=== PATIENT | female | born 1930 | race Caucasian/White ===

== ENCOUNTER 2017-01-11 12:47 | Emergency (ER) | payer MEDICARE, BC ==
--- NOTE | 2017-01-11 13:23 | EDM.PDOC ---
ED HPI GENERAL MEDICAL PROBLEM - General Chief Complaint: Cardiovascular Problem Stated Complaint: HIGH BLOOD PRESSURE Time Seen by Provider: 01/11/17 13:00 Source of Information: Reports: Patient, Family History Limitations: Reports: No Limitations - History of Present Illness INITIAL COMMENTS - FREE TEXT/NARRATIVE: Alejandra is 1 day post op excision of ganglion cyst of R foot, managed with orthotic shoe and analgesics including Vicodin 5/325 q 4 hrs. She felt fine last night and this am, but over the past 2 hrs have felt different, aching, dizziness, and some nausea. There is no chest pain, SOB, palpitations, abdominal pain, loss of coordination, or new issues affecting R foot. She checked her BP 178/85, and again 196/90 at home, called her surgeon who suggested visit to ED. Upon arrival, BP 183/60. 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 [employer]KER: hydrocodone - Related Data Allergies Allergy/AdvReac Type Severity Reaction Status Date / Time codeine Allergy Nausea and Verified 01/11/17 12:56 Vomiting Latex, Natural Rubber Allergy Rash Verified 01/11/17 12:56 Home Meds: Home Meds Acetaminophen/HYDROcodone [[place] 325-5 MG] 1 tab PO DAILY 01/11/17 [History] Aspirin 1 tab PO DAILY 01/11/17 [History] Calcium Carb & Citrate/Vit D3 [Calcium + D3 ER Tablet] 1 tab PO DAILY 01/11/17 [ History] Carboxymethylcellulose Sodium [Refresh Plus 0.5%] 1 drop EYEBOTH DAILY 01/11/17 [History] Cholecalciferol (Vitamin D3) [Vitamin D3] 1 cap PO DAILY 01/11/17 [History] Fish Oil/DHA/EPA [Fish Oil 1,200 MG] 1 cap PO DAILY 01/11/17 [History] Flaxseed/Omega3,6,9/Fatty Acid [Flax Seed Oil 1,300 mg Softgel] 1 cap PO DAILY 01/11/17 [History] Gluc 2KCl/Chondr/Chace Hy/Hy Ac [Glucosamine & Chondroitin Cap] 1 each PO DAILY 01/11/17 [History] Levothyroxine 1 mcg PO DAILY 01/11/17 [History] Multivitamin [Multivitamins] 1 tab PO DAILY 01/11/17 [History] Past Medical History Endocrine/Metabolic History: Reports: Hypothyroidism ED ROS GENERAL - Review of Systems Review Of Systems: See Below Constitutional: Reports: No Symptoms HEENT: Reports: No Symptoms Respiratory: Reports: No Symptoms Cardiovascular: Reports: Lightheadedness Endocrine: Reports: No Symptoms GI/Abdominal: Reports: Nausea : Reports: No Symptoms Musculoskeletal: Reports: Foot Pain (right) Skin: Reports: No Symptoms Neurological: Reports: Dizziness Psychiatric: Reports: No Symptoms Hematologic/Lymphatic: Reports: No Symptoms Immunologic: Reports: No Symptoms ED EXAM, GENERAL - Physical Exam Exam: See Below Exam Limited By: No Limitations General Appearance: Alert, WD/WN, No Apparent Distress, Anxious Eye Exam: Bilateral Eye: Normal Inspection, PERRL Ears: Normal External Exam Nose: Normal Inspection Throat/Mouth: Normal Inspection, Normal Oropharynx Head: Normocephalic Neck: Normal Inspection, Supple, Non-Tender, Full Range of Motion Respiratory/Chest: Lungs Clear, Normal Breath Sounds, No Accessory Muscle Use, Chest Non-Tender Cardiovascular: Normal Peripheral Pulses, Regular Rate, Rhythm, No Edema, No JVD , Systolic Murmur (grade 2/6 CAIO) GI/Abdominal: Normal Bowel Sounds, Soft, Non-Tender, No Organomegaly, No Distention, No Mass (Female) Exam: Deferred Rectal (Female) Exam: Deferred Back Exam: Normal Inspection Extremities: Normal Inspection, Normal Range of Motion, Non-Tender, No Pedal Edema, Normal Capillary Refill Neurological: Alert, Oriented, CN II-XII Intact, Normal Reflexes, No Motor/ Sensory Deficits Psychiatric: Normal Affect, Anxious Skin Exam: Warm, Dry Lymphatic: No Adenopathy Course - Vital Signs Text/Narrative:: BP and pulse were periodically monitored over the next hour, with BPs 165/60, 60 ; 158/64, 63; and 147/69, 57; she was asx during this observation. No meds were dispensed. Last Recorded V/S: Last Vital Signs Temp 36.6 C 01/11/17 13:08 Pulse 57 L 01/11/17 14:02 Resp 16 01/11/17 14:02 BP 147/69 H 01/11/17 14:02 Pulse Ox 99 01/11/17 14:02 Departure - Departure Time of Disposition: 14:15 Disposition: Home, Self-Care 01 Condition: good Clinical Impression: Labile hypertension Forms: ED Department Discharge - Problem List & Annotations (1) Labile hypertension SNOMED Code(s): 19145681462500902 Code(s): I10 - ESSENTIAL (PRIMARY) HYPERTENSION Status: Acute Current Visit: Yes Annotation/Comment:: Labile hypertension NOS. I suggested holding any further doses of the Vicodin, may take Tylenol for pain, activity as tolerated. No meds dispensed. - Problem List Review Problem List Initiated/Reviewed/Updated: Yes - Assessment/Plan Plan: Follow up with PCP if needed.
[2017-01-11 14:04] VITALS: BP 147/69
== END 2017-01-11 14:20 | disposition home or self-care (01) ==
LOC: FB.ED 12:47 → SUPCPDRO 12:47 → FB.ED 14:20
DX: R09.89 Other specified symptoms and signs involving the circulatory and respiratory systems (principal); E03.9 Hypothyroidism, unspecified; Z88.5 Allergy status to narcotic agent; Z91.040 Latex allergy status; Z91.09 Other allergy status, other than to drugs and biological substances; Z79.82 Long term (current) use of aspirin; Z79.899 Other long term (current) drug therapy
CPT/HCPCS: 99282

== ENCOUNTER 2017-05-04 12:32 | Emergency (ER) | payer MEDICARE, BC ==
[2017-05-04 13:57] VITALS: BP 175/58
--- NOTE | 2017-05-04 14:01 | EDM.PDOC ---
ED HPI GENERAL MEDICAL PROBLEM - General Chief Complaint: Neuro Symptoms/Deficits Stated Complaint: DIZZINESS Time Seen by Provider: 05/04/17 12:34 Source of Information: Reports: Patient, Family History Limitations: Reports: No Limitations - History of Present Illness INITIAL COMMENTS - FREE TEXT/NARRATIVE: 86 y.o.w.mel came to the ed after she was on a ladder and felt suddenly dizzy and pain at her r cheek, no numbness. On arrival, her SBP was 188. Her dizziness subsided as her SBP improved to 154, while here in the ed. Pt's SBP baseline is 140 or lower. No other acute medical issues at this time. No F/C. Onset: Sudden Onset Date: 05/05/17 Onset Time: 07:00 Duration: Constant Location: Reports: Face Quality: Reports: Ache, Dull, Pressure Severity: Moderate Improves with: Reports: None Worsens with: Reports: Other (pressure) Associated Symptoms: Reports: Weakness - Related Data Allergies Allergy/AdvReac Type Severity Reaction Status Date / Time codeine Allergy Nausea and Verified 05/04/17 13:04 Vomiting Latex, Natural Rubber Allergy Rash Verified 05/04/17 13:04 Home Meds: Home Meds Acetaminophen/HYDROcodone [[place] 325-5 MG] 1 tab PO DAILY 01/11/17 [History] Aspirin 1 tab PO DAILY 01/11/17 [History] Calcium Carb & Citrate/Vit D3 [Calcium + D3 ER Tablet] 1 tab PO DAILY 01/11/17 [ History] Carboxymethylcellulose Sodium [Refresh Plus 0.5%] 1 drop EYEBOTH DAILY 01/11/17 [History] Cholecalciferol (Vitamin D3) [Vitamin D3] 1 cap PO DAILY 01/11/17 [History] Fish Oil/DHA/EPA [Fish Oil 1,200 MG] 1 cap PO DAILY 01/11/17 [History] Flaxseed/Omega3,6,9/Fatty Acid [Flax Seed Oil 1,300 mg Softgel] 1 cap PO DAILY 01/11/17 [History] Gluc 2KCl/Chondr/Chace Hy/Hy Ac [Glucosamine & Chondroitin Cap] 1 each PO DAILY 01/11/17 [History] Levothyroxine 1 mcg PO DAILY 01/11/17 [History] Multivitamin [Multivitamins] 1 tab PO DAILY 01/11/17 [History] Amoxicillin/Potassium Clav [Augmentin 875125 Tablet] 1 each PO BID #20 tablet 05/04/17 [Rx] Past Medical History Cardiovascular History: Reports: Heart Murmur Other Cardiovascular History: scheduled for an echo Endocrine/Metabolic History: Reports: Hypothyroidism - Past Surgical History Other Musculoskeletal Surgeries/Procedures:: right foot surgery in [place] 01/10/17 Social & Family History - Tobacco Use Smoking Status *Q: Never Smoker Second Hand Smoke Exposure: No - Caffeine Use Caffeine Use: Reports: Coffee - Recreational Drug Use Recreational Drug Use: No ED ROS GENERAL - Review of Systems Review Of Systems: See Below Constitutional: Reports: No Symptoms, 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) HEENT: Reports: Sinus Problem Respiratory: Reports: No Symptoms Cardiovascular: Reports: No Symptoms Endocrine: Reports: No Symptoms GI/Abdominal: Reports: No Symptoms : Reports: No Symptoms Musculoskeletal: Reports: No Symptoms Skin: Reports: No Symptoms Neurological: Reports: No Symptoms Psychiatric: Reports: No Symptoms Hematologic/Lymphatic: Reports: No Symptoms Immunologic: Reports: No Symptoms ED EXAM, NEURO - Physical Exam Exam: See Below Exam Limited By: No Limitations General Appearance: Alert, WD/WN, Mild Distress Eye Exam: Bilateral Eye: Normal Inspection Ears: Normal External Exam Nose: Normal Inspection Throat/Mouth: Normal Inspection Head Exam: Sinus Tenderness Neck: Normal Inspection, Supple, Non-Tender, Full Range of Motion Respiratory/Chest: No Respiratory Distress, Lungs Clear, Normal Breath Sounds, No Accessory Muscle Use, Chest Non-Tender Cardiovascular: Normal Peripheral Pulses, Regular Rate, Rhythm, No Edema GI/Abdominal: Normal Bowel Sounds, Soft, Non-Tender, No Organomegaly, No Distention, No Abnormal Bruit, No Mass (Female) Exam: Deferred Rectal (Female) Exam: Deferred Neurological: Alert, Normal Mood/Affect, CN II-XII Intact, Normal Gait, Oriented x 3 Back Exam: Normal Inspection, Full Range of Motion Extremities: Normal Inspection, Normal Range of Motion, No Pedal Edema Psychiatric: Normal Affect, Normal Mood Skin Exam: Warm, Dry, Intact, Normal Color, No Rash Course - Vital Signs Text/Narrative:: 86 y.o.w.f came to the ed after she was on a ladder and felt suddenly dizzy and pain at her r cheek, no numbness. On arrival, her SBP was 188. Her dizziness subsided as her SBP improved to 154, while here in the ed. Pt's SBP baseline is 140 or lower. No other acute medical issues at this time. No F/C. PE: Right sided max sinus tendernes, HTN Impression: R sided max sinusitis Impression:R sided max sinusitis, HTN (situational?) Tx: augmentin Reexam: BP improved to 155/87, Dizziness subsided Plan: D/C with instructions, F/U with PMD for BP Meds adjustment Last Recorded V/S: Last Vital Signs Temp 36.9 C 05/04/17 13:57 Pulse 68 05/04/17 13:57 Resp 18 05/04/17 13:57 BP 175/58 H 05/04/17 13:57 Pulse Ox 100 05/04/17 13:57 - Orders/Labs/Meds Labs: Laboratory Tests 05/04/17 05/04/17 Range/Units 13:20 13:20 WBC 8.7 (4.5-12.0) X10-3/uL RBC 4.60 (3.23-5.20) x10(6)uL Hgb 14.2 (11.5-15.5) g/dL Hct 40.9 (30.0-51.3) % MCV 89.0 (80-96) fL MCH 30.8 (27.7-33.6) pg MCHC 34.6 (32.2-35.4) g/dL RDW 13.3 (11.5-15.5) % Plt Count 336 (125-369) X10(3)uL MPV 8.4 (7.4-10.4) fL Neut % (Auto) 62.5 (46-82) % Lymph % (Auto) 23.6 (13-37) % [place] % (Auto) 8.1 (4-12) % Eos % (Auto) 5 (1.0-5.0) % Baso % (Auto) 1 (0-2) % Neut # (Auto) 5.3 (1.6-8.3) # Lymph # (Auto) 2.1 (0.6-5.0) # [place] # (Auto) 0.7 (0.0-1.3) # Eos # (Auto) 0.5 (0.0-0.8) # Baso # (Auto) 0.1 (0.0-0.2) # Sodium 134 L (135-145) mmol/L Potassium 4.5 (3.5-5.3) mmol/L Chloride 99 L (100-110) mmol/L Carbon Dioxide 27 (23-29) mmol/L BUN 20 (8-23) mg/dL Creatinine 0.7 (0.6-1.3) mg/dL Est Cr Clr Drug Dosing TNP Estimated GFR (MDRD) > 60 (>60) BUN/Creatinine Ratio 28.6 H (9-20) Glucose 106 (80-116) mg/dL Calcium 9.5 (8.6-10.2) mg/dL Departure - Departure Time of Disposition: 13:57 Disposition: Home, Self-Care 01 Condition: Good Clinical Impression: Sinusitis Qualifiers: Sinusitis location: maxillary Chronicity: acute Recurrence: non-recurrent Qualified Code(s): J01.00 - Acute maxillary sinusitis, unspecified Hypertension Qualifiers: Hypertension type: essential hypertension Qualified Code(s): I10 - Essential ( primary) hypertension - Discharge Information Prescriptions: Amoxicillin/Potassium Clav [Augmentin 875-125 Tablet] 1 each PO BID #20 tablet Referrals: Maeve Barrios [employer] [Primary Care Provider] - Forms: ED Department Discharge Additional Instructions: Please take ABx as recommended. Please check your blood pressure daily and keep SBP below 14O, Please f/u, come back if your symptoms get worse acutely.
--- NOTE | 2017-05-04 14:39 | CT ---
INDICATION: Headache, facial pain 2 hours, double vision/fuzzy vision, dizziness. CT HEAD WITHOUT CONTRAST: Serial contiguous 2.5 and 5-mm sections were obtained through the brain without contrast and revealed minimal thickening of the lining of the maxillary antra anteriorly with thickened linings in multiple ethmoidal air cells, mostly on the right. Thickening of the lining of the frontal air cells at their bases is also noted. Thickening of the lining of the left sphenoidal air cell is noted, with what appears to be an air-fluid level in the right sphenoidal air cell and an area of thickened lining also seen in that air cell. Thickened lining and retention cyst noted in the left sphenoid air cell. Findings may represent sinusitis and should be correlated clinically. The mastoid air cells appear to be well aerated. No definite cranial abnormality was seen. No shift of midline structures or ventricular abnormalities identified. No bleeding site or hematoma was seen. There is, however, noted some very minimal decreased density in the white matter , left frontoparietal area mainly, suggesting the possibility of minimal microvascular disease. Calcifications are noted in the internal carotid arteries, much more prominently on the left than right. A tiny low-density area is noted in the posterior aspect of the external capsule on the right and could represent a tiny lacunar infarct. IMPRESSION: 1. No definite acute intracranial abnormalities identified. 2. Minimal microvascular disease suggested. 3. Arterial calcifications noted, most prominently at the left internal carotid artery and to a relatively milder extent at the right internal carotid artery. 4. Probable sinusitis most prominently at the ethmoidal air cells. 5. Possible very tiny lacunar infarct posterior external capsule on the right. Total Exam DLP = 949.36 mGy-cm. Report was called to Dr. Prado at 1348 hours, 05/04/2017. [facility]
== END 2017-05-04 14:10 | disposition home or self-care (01) ==
LOC: FB.ED 12:32
DX: I10 Essential (primary) hypertension (principal); J01.00 Acute maxillary sinusitis, unspecified; E03.9 Hypothyroidism, unspecified; Z88.5 Allergy status to narcotic agent; Z91.040 Latex allergy status; Z79.82 Long term (current) use of aspirin; Z79.899 Other long term (current) drug therapy
CPT/HCPCS: 36415; 70450; 80048; 85025; 99283; 99284

== ENCOUNTER 2018-02-28 14:52 | Emergency (ER) | payer MEDICARE, BC ==
--- NOTE | 2018-02-28 15:55 | EDM.PDOC ---
ED HPI GENERAL MEDICAL PROBLEM - General Chief Complaint: Cardiovascular Problem Stated Complaint: VISION BP HIGH Time Seen by Provider: 02/28/18 15:30 Source of Information: Reports: Patient, Family, Old Records History Limitations: Reports: No Limitations - History of Present Illness INITIAL COMMENTS - FREE TEXT/NARRATIVE: Alejandra reports sxs of dizziness ie "my eyes feel heavy" as though she has trouble seeing clearly. She can still read and identify details. Sxs started yesterday, and have persisted today. There is no headache, hearing loss, esthela nasal congestion or sneezing, epistaxis, although she reports some teeth sensitivity on the L side affecting the maxillae and mandible. She has had similar sxs in 2017, and again last winter with ethmoidal and maxillary sinusitis. She has a PMH of HBP, and at least 1 episode of Atrial flutter. She has seen a circular knife cutter machine recently and is scheduled for ambulatory monitoring next week. - Related Data Allergies Allergy/AdvReac Type Severity Reaction Status Date / Time codeine Allergy Nausea and Verified 02/28/18 15:19 Vomiting Latex, Natural Rubber Allergy Rash Verified 02/28/18 15:19 Home Meds: Home Meds Acetaminophen/HYDROcodone [[place] 325-5 MG] 1 tab PO DAILY 01/11/17 [History] Aspirin 1 tab PO DAILY 01/11/17 [History] Calcium Carb & Citrate/Vit D3 [Calcium + D3 ER Tablet] 1 tab PO DAILY 01/11/17 [ History] Carboxymethylcellulose Sodium [Refresh Plus 0.5%] 1 drop EYEBOTH DAILY 01/11/17 [History] Cholecalciferol (Vitamin D3) [Vitamin D3] 1 cap PO DAILY 01/11/17 [History] Fish Oil/DHA/EPA [Fish Oil 1,200 MG] 1 cap PO DAILY 01/11/17 [History] Flaxseed/Omega3,6,9/Fatty Acid [Flax Seed Oil 1,300 mg Softgel] 1 cap PO DAILY 01/11/17 [History] Gluc 2KCl/Chondr/Chace Hy/Hy Ac [Glucosamine & Chondroitin Cap] 1 each PO DAILY 01/11/17 [History] Levothyroxine 1 mcg PO DAILY 01/11/17 [History] Multivitamin [Multivitamins] 1 tab PO DAILY 01/11/17 [History] Amoxicillin/Potassium Clav [Augmentin 875-125 Tablet] 1 each PO BID #20 tablet 05/04/17 [Rx] methylPREDNISolone [Medrol] 84 mg PO ASDIRECTED #1 dospk 02/28/18 [Rx] Past Medical History Cardiovascular History: Reports: Heart Murmur, Hypertension, Other (See Below) Other Cardiovascular History: scheduled for an echo Endocrine/Metabolic History: Reports: Hypothyroidism - Past Surgical History Other Musculoskeletal Surgeries/Procedures:: right foot surgery in [place] 01/10/17 Social & Family History - Caffeine Use Caffeine Use: Reports: Coffee ED ROS GENERAL - Review of Systems Review Of Systems: See Below Constitutional: Reports: No Symptoms HEENT: Reports: Dental Pain, Vision Change Respiratory: Reports: No Symptoms Cardiovascular: Reports: Blood Pressure Problem Endocrine: Reports: No Symptoms GI/Abdominal: Reports: No Symptoms, Mucous in Stool Musculoskeletal: Reports: No Symptoms Skin: Reports: No Symptoms Neurological: Reports: Dizziness Psychiatric: Reports: No Symptoms Hematologic/Lymphatic: Reports: No Symptoms Immunologic: Reports: No Symptoms ED EXAM, GENERAL - Physical Exam Exam: See Below Exam Limited By: No Limitations General Appearance: Alert, WD/WN, No Apparent Distress, Anxious Eye Exam: Bilateral Eye: EOMI, Normal Inspection, PERRL Ears: Normal External Exam, Normal TMs Nose: Normal Inspection, Normal Mucosa, No Blood Throat/Mouth: Normal Inspection, Normal Lips, Normal Teeth, Normal Gums, Normal Oropharynx, Normal Voice, No Airway Compromise Head: Atraumatic, Normocephalic Neck: Normal Inspection, Supple, Non-Tender, Full Range of Motion Respiratory/Chest: Lungs Clear, Normal Breath Sounds, Chest Non-Tender Cardiovascular: Regular Rate, Rhythm, Systolic Murmur (gr 2/6) GI/Abdominal: Normal Bowel Sounds, Soft, Non-Tender, No Organomegaly, No Distention, No Mass (Female) Exam: Deferred Rectal (Female) Exam: Deferred Back Exam: Normal Inspection, Full Range of Motion Extremities: Normal Inspection, Normal Range of Motion, Non-Tender Neurological: Alert, Oriented, CN II-XII Intact, Normal Cognition, Normal Gait, No Motor/Sensory Deficits Psychiatric: Normal Affect, Anxious Skin Exam: Warm, Dry, Intact, Normal Color Lymphatic: No Adenopathy Course - Vital Signs Text/Narrative:: Following assessment, a 3 view sinus series noted some mucosal thickening of ethmoids and a retention cyst of L max antrum; CBC and BMP were baseline; INR 3.47. Current sxs may suggest underlying seasonal allergy affecting the eyes, in association with reported post nasal discharge. BP 179/90 at time of discharge. Last Recorded V/S: Last Vital Signs Temp 36.6 C 02/28/18 14:52 Pulse 63 02/28/18 15:50 Resp 18 02/28/18 15:50 BP 169/56 H 02/28/18 15:50 Pulse Ox 97 02/28/18 15:50 - Orders/Labs/Meds Orders: Active Orders 24 hr Category Date Time Status EKG Documentation Completion [RC] ASDIRECTED Care 02/28/18 15:48 Active Sinus Comp Min 3V [CR] Stat Exams 02/28/18 15:47 Taken EKG 12 Lead [EK] Routine Ther 02/28/18 15:47 Ordered Labs: Laboratory Tests 02/28/18 02/28/18 02/28/18 Range/Units 15:55 15:55 15:55 WBC 7.2 (4.5-12.0) X10-3/uL RBC 4.64 (3.23-5.20) x10(6)uL Hgb 13.9 (11.5-15.5) g/dL Hct 42.3 (30.0-51.3) % MCV 91.1 (80-96) fL MCH 30.0 (27.7-33.6) pg MCHC 32.9 (32.2-35.4) g/dL RDW 13.8 (11.5-15.5) % Plt Count 366 (125-369) X10(3)uL MPV 8.1 (7.4-10.4) fL Neut % (Auto) 62.0 (46-82) % Lymph % (Auto) 24.1 (13-37) % [place] % (Auto) 8.3 (4-12) % Eos % (Auto) 5 (1.0-5.0) % Baso % (Auto) 1 (0-2) % Neut # (Auto) 4.5 (1.6-8.3) # Lymph # (Auto) 1.7 (0.6-5.0) # [place] # (Auto) 0.6 (0.0-1.3) # Eos # (Auto) 0.4 (0.0-0.8) # Baso # (Auto) 0.0 (0.0-0.2) # PT 33.3 H (8.7-11.1) INR 3.47 H (0.89-1.13) Sodium 139 (135-145) mmol/L Potassium 4.6 (3.5-5.3) mmol/L Chloride 104 (100-110) mmol/L Carbon Dioxide 32 (21-32) mmol/L BUN 23 H (7-18) mg/dL Creatinine 0.8 (0.55-1.02) mg/dL Est Cr Clr Drug Dosing 40.98 mL/min Estimated GFR (MDRD) > 60 (>60) BUN/Creatinine Ratio 28.8 H (9-20) Glucose 92 (80-116) mg/dL Calcium 10.2 (8.6-10.2) mg/dL Departure - Departure Time of Disposition: 17:33 Disposition: Home, Self-Care 01 Condition: Good Clinical Impression: Labile hypertension, Allergic sinusitis Prescriptions: methylPREDNISolone [Medrol] 84 mg PO ASDIRECTED #1 dospk Referrals: Jesus Logan MD [Primary Care Provider] - Forms: ED Department Discharge - Problem List & Annotations (1) Sinusitis SNOMED Code(s): 21847461 Code(s): J32.9 - CHRONIC SINUSITIS, UNSPECIFIED Status: Acute Current Visit: No Annotation/Comment:: Suspected allergic sinusitis, managed with a Medrol Dosepak, and resume Claritan 10 mg qd. Qualifiers: Sinusitis location: maxillary Chronicity: acute Recurrence: non- recurrent Qualified Code(s): J01.00 - Acute maxillary sinusitis, unspecified (2) Labile hypertension SNOMED Code(s): 062888318 Code(s): I10 - ESSENTIAL (PRIMARY) HYPERTENSION Status: Acute Current Visit: Yes Annotation/Comment:: Labile hypertension NOS. I suggested holding any further doses of the Vicodin, may take Tylenol for pain, activity as tolerated. No meds dispensed. I suggested home BP monitoring and follow up with PCP in a couple of days. - Problem List Review Problem List Initiated/Reviewed/Updated: Yes - My Orders Last 24 Hours: My Active Orders 02/28/18 15:47 Sinus Comp Min 3V [CR] Stat EKG 12 Lead [EK] Routine 02/28/18 15:48 EKG Documentation Completion [RC] ASDIRECTED - Assessment/Plan Last 24 Hours: My Active Orders 02/28/18 15:47 Sinus Comp Min 3V [CR] Stat EKG 12 Lead [EK] Routine 02/28/18 15:48 EKG Documentation Completion [RC] ASDIRECTED Plan: Follow up with PCP.
[2018-02-28 21:44] VITALS: BP 179/59
--- NOTE | 2018-03-01 05:36 | CR ---
INDICATION: History of ethmoidal and right maxillary sinusitis last year. Dizziness. PARANASAL SINUSES COMPLETE: Three views of the paranasal sinuses were obtained 02/28/[address] scan from 05/04/2017. There appears to be some thickening of the lining of the left maxillary antrum. This could represent a degree of sinusitis, possibly a retention cyst. There appears to be slightly increased density in the right ethmoidal air cells more caudally, which could also represent a degree of sinusitis. No definite air fluid levels or complete opacifications were identified however. Acute sinusitis is not strongly suggested. No definite bony erosion was seen. IMPRESSION: Thickening of the linings suggested in right ethmoidal and left maxillary antra areas. The findings may represent a chronic process, possibly allergic sinusitis. CT may be helpful to some degree correlate clinically. MTDD
== END 2018-02-28 17:44 | disposition home or self-care (01) ==
LOC: FB.ED 14:52
DX: I10 Essential (primary) hypertension (principal); J30.9 Allergic rhinitis, unspecified; Z88.5 Allergy status to narcotic agent; Z91.040 Latex allergy status; Z79.899 Other long term (current) drug therapy; Z79.82 Long term (current) use of aspirin
CPT/HCPCS: 36415; 80048; 85025; 85610; 93005; 99283

== ENCOUNTER 2019-07-16 13:15 | Emergency (ER) | payer MEDICARE, BC ==
[2019-07-16 13:22] VITALS: BP 176/59; PULSE 63
--- NOTE | 2019-07-16 13:41 | EDM.PDOC ---
ED HPI GENERAL MEDICAL PROBLEM - General Chief Complaint: Neurological Problem Stated Complaint: DOUBLE VISION Time Seen by Provider: 07/16/19 13:20 Source of Information: Reports: Patient History Limitations: Reports: No Limitations - History of Present Illness INITIAL COMMENTS - FREE TEXT/NARRATIVE: pt here is alert and oriented, comes from home by EMS shortly after episode of double vision and sever dizziness lasting about 15 minutes, pt states she was at her basement garbing some meat from freezer when this happened , denies LOC, or fall, was able to hold her self up and walk up the stairs to her phone and call her son for help, upon arrival of EMS pt started feeling back to usual self , pt denies any HAs, neck pain, or any other associated neuro sx or CV or GIor resp sx or any other medical concerns. - Related Data Allergies Allergy/AdvReac Type Severity Reaction Status Date / Time codeine Allergy Nausea and Verified 07/16/19 14:43 Vomiting Latex, Natural Rubber Allergy Rash Verified 07/16/19 14:43 Home Meds: Home Meds . [Unable to Verify Home Med List] 02/28/18 [History] Past Medical History Cardiovascular History: Reports: Heart Murmur, Hypertension, Other (See Below) Other Cardiovascular History: scheduled for an echo WEL[employer] MET[employer] ARC History: Reports: None Endocrine/Metabolic History: Reports: Hypothyroidism - Past Surgical History Other Musculoskeletal Surgeries/Procedures:: right foot surgery in [place] 01/10/17 Social & Family History - Family History Family Medical History: Noncontributory - Caffeine Use Caffeine Use: Reports: Coffee ED ROS GENERAL - Review of Systems Review Of Systems: See Below Constitutional: Reports: No Symptoms HEENT: Reports: No Symptoms Respiratory: Reports: No Symptoms Cardiovascular: Reports: No Symptoms GI/Abdominal: Reports: No Symptoms : Reports: No Symptoms Musculoskeletal: Reports: No Symptoms Skin: Reports: No Symptoms Neurological: Reports: Dizziness, Difficulty Walking. Denies: Headache, Numbness, Paresthesia, Seizure, Syncope, Tingling, Tremors, Trouble Speaking, Weakness, Change in Speech, Gait Disturbance Psychiatric: Reports: No Symptoms ED EXAM, GENERAL - Physical Exam Exam: See Below Exam Limited By: No Limitations General Appearance: Alert, No Apparent Distress Eye Exam: Bilateral Eye: Normal Inspection Ears: Normal External Exam, Normal Canal, Normal TMs Nose: Normal Inspection, Normal Mucosa Throat/Mouth: Normal Inspection, Normal Lips, Normal Oropharynx, Perioral Cyanosis Head: Atraumatic Neck: Normal Inspection, Supple, Non-Tender, Full Range of Motion Respiratory/Chest: No Respiratory Distress, Lungs Clear, Normal Breath Sounds Cardiovascular: Normal Peripheral Pulses, Regular Rate, Rhythm, No JVD, No Murmur GI/Abdominal: Normal Bowel Sounds, Soft, Non-Tender, No Distention Back Exam: Normal Inspection, Full Range of Motion Extremities: Normal Inspection, Normal Range of Motion, No Pedal Edema Neurological: Alert, Oriented, CN II-XII Intact Skin Exam: Warm Course - Vital Signs Text/Narrative:: unremarkable labs and CT results showing acute sinusitis were explained to pt . pt is asymptomatic here with stable vitals and sinus rhythm on monitor. . she had dizzy spell short lasting and she is stable for discharge. she has acute sinusitis and pt told me about chronic sx of cough and drainage at her throat, will prescribe Levaquin x 14 days . pt to follow with PCP in 2-3 days for re-check. Last Recorded V/S: Last Vital Signs Temp 36.7 C 07/16/19 13:15 Pulse 63 07/16/19 13:15 Resp 14 07/16/19 13:15 BP 176/59 H 07/16/19 13:15 Pulse Ox 99 07/16/19 13:15 - Orders/Labs/Meds Labs: Laboratory Tests 07/16/19 07/16/19 07/16/19 Range/Units 13:50 13:50 13:50 WBC 7.8 (4.5-12.0) X10-3/uL RBC 4.60 (3.23-5.20) x10(6)uL Hgb 14.1 (11.5-15.5) g/dL Hct 41.9 (30.0-51.3) % MCV 91.1 (80-96) fL MCH 30.7 (27.7-33.6) pg MCHC 33.6 (32.2-35.4) g/dL RDW 13.6 (11.5-15.5) % Plt Count 405 H (125-369) X10(3)uL MPV 8.5 (7.4-10.4) fL Neut % (Auto) 66.2 (46-82) % Lymph % (Auto) 20.0 (13-37) % [place] % (Auto) 9.7 (4-12) % Eos % (Auto) 4 (1.0-5.0) % Baso % (Auto) 1 (0-2) % Neut # (Auto) 5.1 (1.6-8.3) # Lymph # (Auto) 1.6 (0.6-5.0) # [place] # (Auto) 0.8 (0.0-1.3) # Eos # (Auto) 0.3 (0.0-0.8) # Baso # (Auto) 0.0 (0.0-0.2) # Sodium 135 (135-145) mmol/L Potassium 4.7 (3.5-5.3) mmol/L Chloride 99 L D (100-110) mmol/L Carbon Dioxide 29 (21-32) mmol/L BUN 22 H (7-18) mg/dL Creatinine 0.8 (0.55-1.02) mg/dL Est Cr Clr Drug Dosing TNP Estimated GFR (MDRD) > 60 (>60) BUN/Creatinine Ratio 27.5 H (9-20) Glucose 111 (80-116) mg/dL Calcium 9.8 (8.6-10.2) mg/dL Total Bilirubin 0.4 (0.1-1.3) mg/dL AST 25 (5-25) IU/L ALT 30 (12-36) U/L Alkaline Phosphatase 73 (56-112) IU/L Troponin I < 0.017 L (<0.017-0.056) ng/mL Total Protein 7.0 (6.0-8.0) g/dL Albumin 3.9 (2.9-4.5) g/dL Globulin 3.1 g/dL Albumin/Globulin Ratio 1.3 Urine Color (YELLOW) Urine Appearance (CLEAR) Urine pH (5.0-6.5) Ur Specific Western (1.010-1.025) Urine Protein (NEGATIVE) mg/dL Urine Glucose (UA) (NORMAL) mg/dL Urine Ketones (NEGATIVE) mg/dL Urine Occult Blood (NEGATIVE) Urine Nitrite (NEGATIVE) Urine Bilirubin (NEGATIVE) Urine Urobilinogen (NEGATIVE) mg/dL Ur Leukocyte Esterase (NEGATIVE) Urine RBC (0-5) Urine WBC (0-5) Ur Squamous Epith Cells (NS,R,O) Urine Bacteria (NS) 07/16/19 Range/Units 14:43 WBC (4.5-12.0) X10-3/uL RBC (3.23-5.20) x10(6)uL Hgb (11.5-15.5) g/dL Hct (30.0-51.3) % MCV (80-96) fL MCH (27.7-33.6) pg MCHC (32.2-35.4) g/dL RDW (11.5-15.5) % Plt Count (125-369) X10(3)uL MPV (7.4-10.4) fL Neut % (Auto) (46-82) % Lymph % (Auto) (13-37) % [place] % (Auto) (4-12) % Eos % (Auto) (1.0-5.0) % Baso % (Auto) (0-2) % Neut # (Auto) (1.6-8.3) # Lymph # (Auto) (0.6-5.0) # [place] # (Auto) (0.0-1.3) # Eos # (Auto) (0.0-0.8) # Baso # (Auto) (0.0-0.2) # Sodium (135-145) mmol/L Potassium (3.5-5.3) mmol/L Chloride (100-110) mmol/L Carbon Dioxide (21-32) mmol/L BUN (7-18) mg/dL Creatinine (0.55-1.02) mg/dL Est Cr Clr Drug Dosing Estimated GFR (MDRD) (>60) BUN/Creatinine Ratio (9-20) Glucose (80-116) mg/dL Calcium (8.6-10.2) mg/dL Total Bilirubin (0.1-1.3) mg/dL AST (5-25) IU/L ALT (12-36) U/L Alkaline Phosphatase (56-112) IU/L Troponin I (<0.017-0.056) ng/mL Total Protein (6.0-8.0) g/dL Albumin (2.9-4.5) g/dL Globulin g/dL Albumin/Globulin Ratio Urine Color Yellow (YELLOW) Urine Appearance Clear (CLEAR) Urine pH 7.0 H (5.0-6.5) Ur Specific Western 1.005 L (1.010-1.025) Urine Protein Negative (NEGATIVE) mg/dL Urine Glucose (UA) Normal (NORMAL) mg/dL Urine Ketones Negative (NEGATIVE) mg/dL Urine Occult Blood Negative (NEGATIVE) Urine Nitrite Negative (NEGATIVE) Urine Bilirubin Negative (NEGATIVE) Urine Urobilinogen Normal (NEGATIVE) mg/dL Ur Leukocyte Esterase Negative (NEGATIVE) Urine RBC 0-5 (0-5) Urine WBC 0-5 (0-5) Ur Squamous Epith Cells Occasional (NS,R,O) Urine Bacteria Rare H (NS) Departure - Departure Time of Disposition: 15:17 Disposition: Home, Self-Care 01 Clinical Impression: Spell of dizziness - Discharge Information Referrals: [facility] [Primary Care Provider] - Forms: ED Department Discharge
--- NOTE | 2019-07-16 14:16 | CT ---
INDICATION: Diplopia and vertigo. CT HEAD WITHOUT CONTRAST: Spiral examination of the brain axially was obtained with axial, sagittal, and coronal reconstructions, 07/16/19, an were compared with standard images from 05/04/17. Total exam DLP = 1,270.76 mGy-cm. The orbits appear to be intact. There is marked thickening of the lining of the left maxillary antrum, compatible with sinusitis. Thick fluid is suggested and/or retention cysts present in that sinus, not present on the previous examination. There is also thickening and some opacifications in the ethmoidal air cells and thickening of the linings of the bases of the frontal air cells, as well as a retention cyst again seen in the left sphenoidal air cell. The thickened lining of the left sphenoidal air cell seen on the previous study is no longer present, however. Mastoid air cells appear to be well-aerated. Degenerative changes are noted at the atlantoodontoid joint with narrowing and sclerosis and some subchondral cystic change. No definite cranial abnormality was seen, except for thinning of the posterior parietal bones bilaterally of questionable etiology and fairly symmetrically. There is a tiny lacunar infarct in the basal ganglia on the right. Very minimal low density abnormalities are suggested in the white matter, raising question of minimal microvascular disease, similar to the previous study. No shift of midline structures or ventricular abnormalities were seen. No definite acute intracranial abnormality was seen - no bleeding site or hematoma was noted. There is again noted some minimal low density abnormality at the anterior aspect of the anterior limb of the left internal capsule, likely representing a minimal area of lacunar infarct. Calcifications are again noted in the internal carotid arteries. IMPRESSION: 1. No definite acute intracranial abnormality. 2. Sinusitis, ethmoidal and especially left maxillary, definitely new in the left maxillary area and possibly acute. 3. Minimal microvascular disease is suggested. 4. Cerebrovascular disease with calcifications in the internal carotid arteries. 5. Tiny lacunar infarct left basal ganglia and also suggested in the anterior limb of the left internal capsule. Report was called to Brody Mackey MD at 1350 hours on 07/16/19. [facility]
== END 2019-07-16 16:14 | disposition home or self-care (01) ==
LOC: FB.ED 13:15
DX: R42 Dizziness and giddiness (principal); I10 Essential (primary) hypertension; Z88.5 Allergy status to narcotic agent; Z91.040 Latex allergy status
CPT/HCPCS: 36415; 70450; 80053; 81001; 84484; 85025; 99285-25